=== PATIENT | male | born 1960 | race Caucasian/White ===

== ENCOUNTER 2018-04-11 19:28 | Emergency (ER) | END 2018-04-12 01:25 | disposition short-term general hospital (02) ==

== ENCOUNTER 2018-10-08 15:32 | Inpatient (IN) | payer OTHER ==
[~2018-10-08] VITALS: Ht 165.1 cm; Wt 50.9 kg
[2018-10-08] MEDS ORDERED: DIPHTH/TET/ACEL PERTUSS (ADULT) 0.5 ML VIAL IM* ONE (16:00)
[2018-10-08] MEDS ORDERED: ATOR40TA68 PO (16:20)
[2018-10-08] MEDS ORDERED: GLIM2TAB PO (16:21)
[2018-10-08] MEDS ORDERED: AMLO5TAB4 PO (16:21)
[2018-10-08] MEDS ORDERED: METF100010 PO (16:21)
[2018-10-08] MEDS ORDERED: LISI10TA2 PO (16:22)
--- NOTE | 2018-10-08 17:36 | ERD ---
ER Documentation Chief Complaint Chief Complaint PT BIB RA FOR EVAL OF FALL IN PARKING LOT. SUSTAINED LAC TO CHIN. SYNCOPE HPI The patient is a 58-year-old male, presenting to the ER because he fainted in the parking lot, sustaining a laceration to the chin, did not remember what happened to him. He denies fever, headache, facial pain, neck pain, chest pain, dyspnea, abdominal pain, vomiting, dizzy, diarrhea. He does not smoke nor drink Past medical history: Hypertension, diabetes mellitus ROS All systems reviewed and are negative except as per history of present illness. Medications Home Meds Reported Medications Lisinopril* (Lisinopril*) 10 Mg Tablet, 10 MG PO DAILY, #30 TAB 10/08/18 Metformin Hcl* (Metformin Hcl*) 1,000 Mg Tablet, 1000 MG PO WITH BREAKFAST DINNE, #60 TAB 10/08/18 Glimepiride* (Glimepiride*) 2 Mg Tablet, 2 MG PO WITH BREAKFAST, TAB 10/08/18 Amlodipine Besylate* (Norvasc*) 5 Mg Tablet, 5 MG PO DAILY, TAB 10/08/18 Atorvastatin* (Atorvastatin*) 40 Mg Tablet, 40 MG PO QHS, #30 TAB 10/08/18 Allergies Allergies: Coded Allergies: No Known Allergy (Unverified , 10/08/18) PMhx/Soc Hx Cardiac Disorders: Yes (HTN) Hx Alcohol Use: No Hx Substance Use: No Hx Tobacco Use: No Smoking Status: Never smoker Physical Exam Vitals Vital Signs Date Temp Pulse Resp B/P (MAP) Pulse Ox O2 O2 Flow FiO2 Time Delivery Rate 10/08/18 91 18 136/89 98 Room Air 17:43 (105) 10/08/18 96.9 93 16 179/100 99 15:32 (126) Physical Exam Const: No acute distress. Head: Atraumatic. Eyes: Normal Conjunctiva. ENT: Normal External Ears, Nose and Mouth. Chin laceration 1 cm mild bleeding Neck: Full range of motion. No meningismus. Resp: Clear to auscultation bilaterally. Cardio: Regular rate and rhythm. Abd: Soft, non distended, normal bowel sounds, non tender. Skin: No petechiae or rashes. Back: No midline or flank tenderness. Ext: No cyanosis, or edema. Neur: Awake and alert. No focal deficit Psych: Normal Mood and Affect. Result Diagram: 10/08/18 1552 10/08/18 1552 Results 24 hrs Laboratory Tests Test 10/08/18 15:46 10/08/18 15:48 10/08/18 15:52 10/08/18 17:46 Bedside Glucose 524 mg/dL 475 mg/dL Blood Gas Blood venous Specimen Source Arterial Blood 10/01/2018 4:10:0 Date Drawn 8 PM Arterial Blood VENOUS LINE Gas Puncture Site Chema Test N/A Venous Blood pH 7.407 Venous Blood 49.7 mmHG pCO2 (Temp Corrected) Venous Blood pO2 27.1 mmHG (Temp Corrected) Venous Blood 30.6 mmol/L HCO3 Venous Blood 56.0 mmHG Oxygen Saturation Venous Blood 4.9 mmol/L Base Excess Venous Blood 12.3 g/dl Total Hemoglobin Venous Blood 55.6 % Oxyhemoglobin Venous Blood 0.4 % Methemoglobin Carboxyhemoglobi 0.3 % n Blood Gas 37.0 C Temperature Blood Gas ROOM AIR Modality FiO2 21.0 % Blood Gas Yarbrough Critical Value Read Back Blood Gas Yeimi Rasmussenia Notified Whom Blood Gas 10/08/2018 4:20:0 Notified Time 4 PM White Blood 3.5 10^3/ul Count Red Blood Count 3.27 10^6/ul Hemoglobin 10.6 g/dl Hematocrit 29.6 % Mean Corpuscular 90.5 fl Volume Mean Corpuscular 32.4 pg Hemoglobin Mean Corpuscular 35.8 g/dl Hemoglobin Fide nt Red Cell 13.7 % Distribution Width Platelet Count 113 10^3/UL Mean Platelet 10.1 fl Volume Immature 0.300 % Granulocytes % Neutrophils % 63.0 % Lymphocytes % 28.3 % Monocytes % 7.5 % Eosinophils % 0.6 % Basophils % 0.3 % Nucleated Red 0.0 /100WBC Blood Cells % Immature 0.010 10^3/ul Granulocytes # Neutrophils # 2.2 10^3/ul Lymphocytes # 1.0 10^3/ul Monocytes # 0.3 10^3/ul Eosinophils # 0.0 10^3/ul Basophils # 0.0 10^3/ul Nucleated Red 0.0 10^3/ul Blood Cells # Sodium Level 131 mmol/L Potassium Level 4.0 mmol/L Chloride Level 94 mmol/L Carbon Dioxide 31 mmol/L Level Anion Gap 6 Blood Urea 19 mg/dl Nitrogen Creatinine 0.81 mg/dl Est Glomerular > 60 mL/min Filtrat Rate mL/min Glucose Level 540 mg/dl Calcium Level 8.7 mg/dl Phosphorus Level 3.6 mg/dl Magnesium Level 2.0 mg/dl Troponin I < 0.012 ng/ml Current Medications Medications Dose Sig/Adriel Start Time Status Last (Trade) Ordered Route PRN Stop Time Admin Dose Reason Admin Diphtheria/ 0.5 ml ONCE ONCE 10/08/18 DC 10/08/18 Tetanus/Acell IM* 16:00 16:37 Pertussis 10/08/18 16:01 (Adacel) Insulin 14 unit ONCE ONCE 10/08/18 DC 10/08/18 Human SC 18:00 17:58 Lispro 10/08/18 18:01 (Humalog) Diagnostic 1 ea 2 HRS AFTER 10/08/18 DC Test (Pha) HUMALOG ONCE 18:00 (Accu-Chek) XX 10/08/18 18:01 Sodium 1,000 ml @ Q1H ONCE 10/08/18 10/08/18 Chloride 1,000 mls/hr IV 18:00 17:59 10/08/18 18:59 Procedures/[place] [id number] Radiology Main Line: [phone] DIAGNOSTIC IMAGING REPORT Patient: LARS WATTS : 1960 Age: 58 Sex: M MR #: [id number] DOS: 10/08/18 1546 Ordering MD: RAJNI YARBROUGH MD Location: E/R Room/Bed: PROCEDURE: CT Brain without contrast. CLINICAL INDICATION: Syncope. TECHNIQUE: A CT of the brain without contrast was performed utilizing axial sections from the skull base through the vertex. One or more the following does reduction techniques were utilized: Automated exposure control, adjustment of the mA/ or kV according to patient's size, or use of iterative reconstruction technique. Total exam CTDIvol is 39 MGy and DLP is 634 mGy-cm. DICOM images are available. COMPARISON: None available. FINDINGS: The ventricles and sulci are mildly prominent indicative of volume loss. There is no intracranial hemorrhage, mass effect or midline shift. No abnormal intra- axial or extra-axial fluid collections are seen. The puga/white matter differentiation is well preserved. There are mild scattered foci of hypoattenuation in the periventricular, deep, and subcortical white matter, which are nonspecific in etiology but likely reflect chronic small vessel ischemic changes. There are mild intracranial vascular calcifications consistent with atherosclerosis. The visualized paranasal sinuses are essentially clear. IMPRESSION: 1. No acute intracranial hemorrhage, transcortical infarction or mass effect. 2. Mild intracranial atherosclerosis and chronic small vessel ischemic changes. 3. Mild generalized cerebral volume loss. RPTAT: HH .June Martinez MD, MD Date Time Electronically viewed and signed by .June Martinez MD, MD on 10/08/2018 17:33 .N/ CC: RAJNI YARBROUGH MD [id number] [place] [id number] Radiology Main Line: [phone] DIAGNOSTIC IMAGING REPORT Patient: LARS WATTS : 1960 Age: 58 Sex: M MR #: [id number] DOS: 10/08/18 1546 Ordering MD: RAJNI YARBROUGH MD Location: E/R Room/Bed: PROCEDURE: XR Chest. CLINICAL INDICATION: Shortness of breath. TECHNIQUE: Single frontal view. COMPARISON: 04/11/2018. FINDINGS: The lungs are clear. The heart size is normal. There is calcification in the aorta consistent with atherosclerosis. There is no pleural effusion. There is no pneumothorax. IMPRESSION: 1. Atherosclerosis. 2. Otherwise normal chest x-ray. RPTAT: QQ .Edgar Cline MD, Date Time Electronically viewed and signed by .Edgar Cline MD, on 10/08/2018 16:26 .R/ CC: RAJNI YARBROUGH MD [phone] EKG: Read by emergency physician Rate/Rhythm: Normal Sinus Rhythm 93 beats/min QRS, ST, T-waves: No ST elevation, no T inversion, LAD Impression: Normal EKG MEDICAL MAKING DECISION: The patient is a 58-year-old male, presenting with acute syncope, acute hyperglycemia, acute chin laceration. He was treated with tetanus vaccination, 1 L normal saline and 14 units of Humalog subcutaneously for acute diabetic hyperglycemia with good response. The differential diagnoses acute syncope considered include but are not limited to arrhythmogenic right ventricular dysplasia, Brugada syndrome, left ve ntricular hypertrophy, pulmonary embolism, QT abnormality, [id number], medical noncompliance, dietary noncompliance, HHS, DKA, infection. Laceration Repair by me: Anesthesia: None Location: chin Tendon/Joint/Nerves: No injury Foreign body: None detected after copious irrigation and exploration Technique: Tissue adhesive Complexity: No subcutaneous sutures/mucosal repair/edge excision Post Closure Length: 1cm Patient's bleeding was easily controlled in the department and there is no indication of anemia. No evidence of compartment syndrome, neurologic injury, vascular injury, open joint, tendon laceration, or foreign body. Patient is appropriate for outpatient follow up. 48 hour wound check. Scar minimization instructions given. Departure Diagnosis: Primary Impression: Syncope Additional Impressions: Hyperglycemia Chin laceration Pancytopenia Condition: Good Comments I discussed the findings with the patient. I discussed the patient with Dr Orellana at 5:45 PM, who was made aware of the lab, the treatment, the patient condition. The patient is admitted to [facility] Disclaimer: Inadvertent spelling and grammatical errors are likely due to EHR/dictation software use and do not reflect on the overall quality of patient care. Also, please note that the electronic time recorded on this note does not necessarily reflect the actual time of the patient encounter. RAJNI YARBROUGH MD October 08, 2018 17:36
[2018-10-08] MEDS ORDERED: ACCU-CHEK XX ONE (18:00)
[2018-10-08] MEDS ORDERED: SOD CHLORIDE 0.9% 1,000 ML IV ONE (18:00)
[2018-10-08] MEDS ORDERED: INSULIN LISPRO 100 UNIT/ML VIAL SC ONE (18:00)
[2018-10-08 21:14] VITALS: PULSE 94
[2018-10-08 21:23] VITALS: BP 169/95; PULSE 88; RESP 18
[2018-10-08 21:51] VITALS: Ht 165.1 cm; Wt 50.9 kg
[2018-10-08] MEDS ORDERED: ACETAMINOPHEN 325 MG TAB PO PRN (22:00)
[2018-10-08] MEDS ORDERED: ALBUTEROL/IPRATROPIUM (NEB) 3 ML AMP HHN PRN (22:00)
[2018-10-08] MEDS ORDERED: ONDANSETRON 4 MG INJ IV PRN (22:00)
--- NOTE | 2018-10-08 22:11 | HP ---
Date/Time of Note Date/Time of Note DATE: 10/08/18 TIME: 22:11 Assessment/Plan VTE Prophylaxis Pharmacological prophylaxis: other Lines/Catheters IV Catheter Type (from Nrsg): Saline Lock Assessment/Plan Assessment/Plan 1. Syncope: Possibly from hypoglycemia -Telemetry monitoring -Head CT negative for acute findings -EKG without ST-T wave abnormalities and first troponin negative -Treat hypoglycemia -Serial troponin -2D echo and carotid Doppler ultrasound -PT eval 2. Type 2 diabetes with hyperglycemia: No sign of DKA -Blood glucose better controlled -Continue metformin with ISS -Check A1c 3. Hypertension: Adjust antihypertensive as needed 4. Mild hyponatremia: Likely pseudohyponatremia from hyperglycemia 5. Dyslipidemia: Continue statin Result Diagram: 10/08/18 1552 10/08/18 1552 Results 24hrs Laboratory Tests Test 10/08/18 15:46 10/08/18 15:48 10/08/18 15:52 10/08/18 17:46 Bedside Glucose 524 *H 475 *H Blood Gas Blood venous Specimen Source Arterial Blood 10/01/2018 4:10:0 Date Drawn 8 PM Arterial Blood VENOUS LINE Gas Puncture Site Chema Test N/A Venous Blood pH 7.407 Venous Blood pCO2 49.7 H (Temp Corrected) Venous Blood pO2 27.1 (Temp Corrected) Venous Blood HCO3 30.6 H Venous Blood 56.0 Oxygen Saturation Venous Blood Base 4.9 Excess Venous Blood 12.3 Total Hemoglobin Venous Blood 55.6 Oxyhemoglobin Venous Blood 0.4 Methemoglobin Carboxyhemoglobin 0.3 Blood Gas 37.0 Temperature Blood Gas ROOM AIR Modality FiO2 21.0 Blood Gas Egan Critical Value Read Back Blood Gas ChingOvidio Olivares Notified Whom Blood Gas 10/08/2018 4:20:0 Notified Time 4 PM White Blood Count 3.5 #L Red Blood Count 3.27 L Hemoglobin 10.6 L Hematocrit 29.6 L Mean Corpuscular 90.5 Volume Mean Corpuscular 32.4 Hemoglobin Mean Corpuscular 35.8 Hemoglobin Concen t Red Cell 13.7 Distribution Width Platelet Count 113 L Mean Platelet 10.1 Volume Immature 0.300 Granulocytes % Neutrophils % 63.0 Lymphocytes % 28.3 Monocytes % 7.5 Eosinophils % 0.6 Basophils % 0.3 Nucleated Red 0.0 Blood Cells % Immature 0.010 Granulocytes # Neutrophils # 2.2 Lymphocytes # 1.0 Monocytes # 0.3 Eosinophils # 0.0 Basophils # 0.0 Nucleated Red 0.0 Blood Cells # Sodium Level 131 L Potassium Level 4.0 Chloride Level 94 L Carbon Dioxide 31 Level Anion Gap 6 Blood Urea 19 Nitrogen Creatinine 0.81 Est Glomerular > 60 Filtrat Rate mL/min Glucose Level 540 *H Calcium Level 8.7 Phosphorus Level 3.6 Magnesium Level 2.0 Troponin I < 0.012 Test 10/08/18 20:06 10/08/18 21:36 Bedside Glucose 226 H 98 HPI/ROS Admit Date/Time Admit Date/Time October 08, 2018 at 17:44 Hx of Present Illness This is a 58-year-old male with a history of hypertension, dyslipidemia and type 2 diabetes who presents the ER after he had a syncopal episode. Patient fell in the parking lot. He sustained laceration to his chin. He did complain of dizziness. Denied chest pain. When he presented to the ER, blood pressure was 179/100. Labs shows a blood glucose of 540 and a sodium of 131. EKG without ST-T wave abnormalities, first troponin is negative and head CT without acute findings. PMH/Family/Social Past Medical History Past Medical History Medical History: other (See HPI) Past Surgical History Past Surgical Hx: other (See HPI) Family History Significant Family History: no pertinent family hx Social History Alcohol Use: none Smoking Status: Never smoker Drug Use: none Exam Constitutional: alert, oriented, well developed Head: normocephalic, atraumatic Eyes: EOMI, PERRL Respiratory: clear to auscultation, normal air movement Cardiovascular: regular rate and rhythm, nl pulses Gastrointestinal: soft, non-tender Extremities: normal pulses Medications Current Medications Sodium Chloride 1,000 ml @ 80 mls/hr [id number] IV ; Start 10/08/18 at 21:49; Status UNV Ondansetron HCl (Zofran Inj) 4 mg Q6H PRN IV NAUSEA/VOMITING; Start 10/08/18 at 22:00; Status UNV Acetaminophen (Tylenol Tab) 650 mg Q6H PRN PO .PAIN 1-3 OR TEMP; Start 10/08/18 at 22:00; Status UNV Albuterol/ Ipratropium (Duoneb) 3 ml Q2H RESP THERAPY PRN HHN SHORTNESS OF BREATH; Start 10/08/18 at 22:00; Status UNV Amlodipine Besylate (Norvasc) 5 mg DAILY PO ; Start 10/09/18 at 09:00; Status UNV Atorvastatin Calcium (Lipitor) 40 mg QHS PO ; Start 10/09/18 at 21:00; Status UNV Lisinopril (Zestril) 10 mg DAILY PO ; Start 10/09/18 at 09:00; Status UNV Metformin HCl (Glucophage) 1,000 mg WITH BREAKFAST DINNE PO ; Start 10/09/18 at 08:00; Status UNV Diagnostic Test (Pha) (Accu-Chek) 1 ea AC MEALS AND BEDTIME XX ; Start 10/09/18 at 07:00; Status UNV Miscellaneous Information (* Miscellaneous Pharmacy Order) Discontinue current oral sulfonylur... ONCE ONCE XX ; Start 10/08/18 at 22:00; Stop 10/08/18 at 22:01; Status UNV Diagnostic Test (Pha) (Accu-Chek) 1 ea 02 XX ; Start 10/09/18 at 02:00; Status UNV Miscellaneous Information (* Miscellaneous Pharmacy Order) HYPOGLYCEMIA PROTOCOL w... ONCE ONCE XX ; Start 10/08/18 at 22:00; Stop 10/08/18 at 22:01; Status UNV Insulin Aspart (Novolog Insulin Pen) NOVOLOG *MODERATE* ALGORITHM WITH MEALS BEDTIME SC ; Start 10/09/18 at 08:00; Status UNV Miscellaneous Information (* Miscellaneous Pharmacy Order) Discontinue all previ... ONCE ONCE XX ; Start 10/08/18 at 22:00; Stop 10/08/18 at 22:01; Status UNV Coded Allergies: No Known Allergy (Unverified , 10/08/18) Social History Smoking Status: Never smoker Exam/Review of Systems Vital Signs Vitals Vital Signs Date Temp Pulse Resp B/P (MAP) Pulse Ox O2 O2 Flow FiO2 Time Delivery Rate 10/08/18 98.3 88 18 169/95 94 Room Air 21:23 (119) ELIZABETH AVILA MD October 08, 2018 22:11
[2018-10-08] MEDS ORDERED: GLUCAGON 1 MG INJ IM PRN (22:30)
[2018-10-08] MEDS ORDERED: DEXTROSE 50% 50 ML SYRINGE IV PRN ×2 (22:30)
[2018-10-08] MEDS ORDERED: GLUCOSE GEL 15 GRAM TUBE BUCCAL PRN (22:30)
[2018-10-08] MEDS ORDERED: GLUCOSE GEL 15 GRAM TUBE PO PRN ×2 (22:30)
[2018-10-08] MEDS: SOD CHLORIDE 0.9% 1,000 ML IV SCH (22:52)
[2018-10-09] VITALS (10 sets, daily range): BP systolic 136–166; BP diastolic 75–90; PULSE 71–97; RESP 18–22
[2018-10-09] MEDS: ACCU-CHEK XX SCH ×5 (02:00→21:43)
[2018-10-09] MEDS: metFORMIN 500 MG TAB PO SCH ×2 (08:05→17:14)
[2018-10-09] MEDS: AMLODIPINE 5 MG TAB PO SCH (08:05)
[2018-10-09] MEDS: LISINOPRIL 10 MG TAB PO SCH (08:06)
[2018-10-09] MEDS: INSULIN ASPART [NOVOLOG] 3 ML PEN SC SCH ×4 (08:11→21:42)
[2018-10-09] MEDS: SOD CHLORIDE 0.9% 1,000 ML IV SCH ×2 (10:19→12:55)
[2018-10-09] MEDS ORDERED: LABETALOL HCL 20MG INJ IV PRN (11:30)
--- NOTE | 2018-10-09 15:13 | RADRPT ---
Echocardiogram Report Patient Name: Andra WATTS ID: [id number] : 1960 (58y 6m)Study Date: 10/09/2018 11:04:06 AM Gender: MAccession #: [id number] Tech: Saad Montes [facility] Location: [address] Ref.Physician: CONNOR BUSTILLOS Height(Cm): BSA: Weight(Kg): Quality: AdequateOrder Physician: CONNOR BUSTILLOS Account #: Procedures: Echocardiographic Report: Transthoracic echocardiogram with complete 2D, M-Mode, and doppler examination. Indications: Syncope. Measurements: 2D/M Mode Doppler Measurement Value Normal Range Measurement Value Normal Range LVIDd 2D 4.1 [ 4.2 - 5.8 ] cm AV Peak Alfredito 1.1 [ 100.0 - 170.0 ] cm/sec LVIDs 2D 2.6 [ 2.5 - 4.0 ] cm AV Peak PG 5.0 [ 2.0 - 9.0 ] mmHg LVPWd 2D 1.0 [ 0.6 - 1.0 ] cm LVOT Peak Alfredito 0.9 [ 70.0 - 110.0 ] cm/sec IVSd 2D 1.0 [ 0.6 - 1.0 ] cm LVOT Peak PG 3.0 [ 2.0 - 6.0 ] mmHg AoR Diam 2D 3.1 [ 2.6 - 3.4 ] cm MV E Peak Alfredito 0.8 [ 60.0 - 130.0 ] cm/sec EDV 2D 75.9 [ 62.0 - 150.0 ] ml MV A Peak Alfredito 1.0 [ 100.0 - 120.0 ] cm/sec ESV 2D 24.4 [ 21.0 - 61.0 ] ml MV E/A 0.8 [ 0.8 - 1.5 ] ratio EF 2D 67.9 [ 52.0 - 72.0 ] percent MV Decel Time 155 [ 104 - 258 ] msec LA Dimen 2D 2.6 [ 3.0 - 4.0 ] cm Lat E` Alfredito 0.1 [ 10.0 - 15.0 ] cm/sec Lateral E/E` 10.8 [ 1.0 - 2.0 ] ratio MV E/A 0.8 [ 0.8 - 1.5 ] ratio TR Peak Alfredito 2.8 [ 100.0 - 280.0 ] cm/sec TR Peak PG 31.0 mmHg RVSP 41.0 [ 10.0 - 36.0 ] mmHg Findings: Left Ventricle: Normal left ventricular systolic function. Normal left ventricular cavity size. Normal left ventricular wall thickness. Ejection fraction is visually estimated at 65 %. Tissue Doppler/Mitral Doppler indices are consistent with impaired relaxation (Stage I diastolic dysfunction). Right Ventricle: Normal right ventricular size. Normal right ventricular systolic function. Left Atrium: The left atrium is normal in size. Right Atrium: The right atrium is normal in size. Mitral Valve: Mild mitral leaflet calcification. Mild mitral annular calcification. Trace mitral regurgitation. Aortic Valve: No hemodynamically significant aortic stenosis by doppler. Aortic cusps appear mildly calcified. Tricuspid Valve: Normal appearance of the tricuspid valve. Estimated peak PA systolic pressure 41 mmHg. There is mild tricuspid regurgitation. Pericardium: Normal pericardium with no significant pericardial effusion. Aorta: Normal aortic root. IVC: Normal size and normal respiratory collapse consistent with normal right atrial pressure. Conclusions: Normal left ventricular systolic function. Normal left ventricular cavity size. Normal left ventricular wall thickness. Ejection fraction is visually estimated at 65 %. Tissue Doppler/Mitral Doppler indices are consistent with impaired relaxation (Stage I diastolic dysfunction). Mild mitral leaflet calcification. Mild mitral annular calcification. Trace mitral regurgitation. No hemodynamically significant aortic stenosis by doppler. Aortic cusps appear mildly calcified. Normal appearance of the tricuspid valve. Estimated peak PA systolic pressure 41 mmHg. There is mild tricuspid regurgitation. Electronically Signed By: Manpreet Fernández 2018-10-09 15:12:38 PDT
--- NOTE | 2018-10-09 15:40 | PN ---
Date/Time of Note Date/Time of Note DATE: 10/09/18 TIME: 15:40 Objective Vitals Vital Signs Date Temp Pulse Resp B/P (MAP) Pulse Ox O2 O2 Flow FiO2 Time Delivery Rate 10/09/18 97 12:01 10/09/18 97.8 22 136/75 96 Room Air 11:40 (95) Intake and Output 10/08/18 10/08/18 10/09/18 1515:00 23:00 07:00 IntakeIntake Total 500 ml OutputOutput Total 800 ml BalanceBalance -300 ml Results Result Diagram: 10/09/18 0416 10/09/18 0416 Medications Medications Current Medications Sodium Chloride 1,000 ml @ 80 mls/hr [id number] IV Last administered on 10/09/18at 12:55; Admin Dose 80 MLS/HR; Start 10/08/18 at 21:49 Ondansetron HCl (Zofran Inj) 4 mg Q6H PRN IV NAUSEA/VOMITING; Start 10/08/18 at 22:00 Acetaminophen (Tylenol Tab) 650 mg Q6H PRN PO .PAIN 1-3 OR TEMP; Start 10/08/18 at 22:00 Albuterol/ Ipratropium (Duoneb) 3 ml Q2H RESP THERAPY PRN HHN SHORTNESS OF BREATH; Start 10/08/18 at 22:00 Amlodipine Besylate (Norvasc) 5 mg DAILY PO Last administered on 10/09/18at 08:05; Admin Dose 5 MG; Start 10/09/18 at 09:00 Atorvastatin Calcium (Lipitor) 40 mg QHS PO ; Start 10/09/18 at 21:00 Lisinopril (Zestril) 10 mg DAILY PO Last administered on 10/09/18at 08:06; Admin Dose 10 MG; Start 10/09/18 at 09:00 Metformin HCl (Glucophage) 1,000 mg WITH BREAKFAST DINNE PO Last administered on 10/09/18at 08:05; Admin Dose 1,000 MG; Start 10/09/18 at 08:00 Diagnostic Test (Pha) (Accu-Chek) 1 ea AC MEALS AND BEDTIME XX Last administered on 10/09/18at 11:42; Admin Dose 1 EA; Start 10/09/18 at 07:00 Diagnostic Test (Pha) (Accu-Chek) 1 ea 02 XX Last administered on 10/09/18at 02:00; Admin Dose 1 EA; Start 10/09/18 at 02:00 Insulin Aspart (Novolog Insulin Pen) NOVOLOG *MODERATE* ALGORITHM WITH MEALS BEDTIME SC Last administered on 10/09/18at 11:45; Admin Dose 6 UNIT; Start 10/09/18 at 08:00 Miscellaneous Information 1 ea NOTE XX ; Start 10/08/18 at 22:30 Glucose (Glutose) 15 gm Q15M PRN PO DECREASED GLUCOSE; Start 10/08/18 at 22:30 Glucose (Glutose) 22.5 gm Q15M PRN PO DECREASED GLUCOSE; Start 10/08/18 at 22:30 Dextrose (D50w Syringe) 25 ml Q15M PRN IV DECREASED GLUCOSE; Start 10/08/18 at 22:30 Dextrose (D50w Syringe) 50 ml Q15M PRN IV DECREASED GLUCOSE; Start 10/08/18 at 22:30 Glucagon (Glucagen) 1 mg Q15M PRN IM DECREASED GLUCOSE; Start 10/08/18 at 22:30 Glucose (Glutose) 15 gm Q15M PRN BUCCAL DECREASED GLUCOSE; Start 10/08/18 at 22:30 Insulin Glargine (Lantus) 10 units DAILY@2000 SC ; Start 10/09/18 at 20:00 Labetalol HCl (Labetalol) 10 mg Q4H PRN IV sbp >160; Start 10/09/18 at 11:30 VTE Prophylaxis Risk score (from Ns)>0 risk: 2 SCD applied (from Ns): Yes Lines/Catheters IV Catheter Type: Gilliam in Place: No Assessment/Plan Hospital Course Subjective Patient feeling well, no acute complaints Objective Physical exam General: Patient is laying in bed and answers questions appropriately Mentation: Patient is alert and oriented 4, Head: Normocephalic atraumatic Eyes: EOMI, pupils reactive to light Neck: Supple, nontender, midline Respiratory: Clear to auscultation bilaterally Cardiovascular: regular rate, no obvious murmurs Gastrointestinal: non-tender to palpation, bowel sounds heard. Neurological: Moves all extremities spontaneously Skin: Skin sedrick present on left hip Assessment and plan Syncope -Possibly due to effects of hyperglycemia -Completely resolved -No chest pain or other symptoms currently, no dizziness -Echo noted -Doppler noted -CT head negative -Unable to perform MRI as patient had hip surgery, patient states the only put plastic inside him however patient is a very poor historian and very likely unreliable as he does not even remember the hospital that he got the surgery done. Type 2 diabetes with hyperglycemia -Not in DKA -We will need to adjust insulin other medications as needed -A1c is very elevated Left hip sedrick -Present since March 2018 as patient did not follow-up with his orthopedic surgeon, -Remove today Hypertension -Adjust as needed Hyponatremia -Monitor closely, mild, improving Dyslipidemia -Continue statin Disposition -Patient appears to have very poor insight into his medical care as he left sedrick in for approximately 6 months, patient did follow-up with his primary care provider but did not inquire further once the sedrick were not removed, remove sedrick today -Continue adjusting diabetic medications before discharge. CONNOR BUSTILLOS October 09, 2018 15:40
[2018-10-09] MEDS: LINAGLIPTIN 5 MG TABLET PO SCH (17:14)
[2018-10-09] MEDS: REPAGLINIDE 1 MG TAB PO SCH (17:14)
[2018-10-09] MEDS ORDERED: INSULIN GLARGINE [LANTus] (100 UNITS/ML) SYG SC SCH (20:00)
[2018-10-09] MEDS: ATORVASTATIN 40 MG TAB PO SCH (20:42)
[2018-10-10] VITALS (10 sets, daily range): BP systolic 107–160; BP diastolic 62–86; PULSE 75–90; RESP 18–22
[2018-10-10] MEDS: ACCU-CHEK XX SCH ×5 (02:01→20:32)
[2018-10-10] MEDS: SOD CHLORIDE 0.9% 1,000 ML IV SCH (04:55)
[2018-10-10] MEDS: INSULIN ASPART [NOVOLOG] 3 ML PEN SC SCH ×4 (07:47→20:31)
[2018-10-10] MEDS: metFORMIN 500 MG TAB PO SCH ×2 (08:17→17:09)
[2018-10-10] MEDS: LISINOPRIL 10 MG TAB PO SCH (08:17)
[2018-10-10] MEDS: AMLODIPINE 5 MG TAB PO SCH (08:18)
[2018-10-10] MEDS: REPAGLINIDE 1 MG TAB PO SCH ×3 (08:18→17:09)
[2018-10-10] MEDS: LINAGLIPTIN 5 MG TABLET PO SCH (08:18)
--- NOTE | 2018-10-10 14:30 | PN ---
Date/Time of Note Date/Time of Note DATE: 10/10/18 TIME: 14:28 Objective Vitals Vital Signs Date Temp Pulse Resp B/P (MAP) Pulse Ox O2 O2 Flow FiO2 Time Delivery Rate 10/10/18 79 12:00 10/10/18 98.2 22 107/62 96 Room Air 11:34 (77) Intake and Output 10/09/18 10/09/18 10/10/18 1515:00 23:00 07:00 IntakeIntake Total 1000 ml 980 ml 400 ml BalanceBalance 1000 ml 980 ml 400 ml Results Result Diagram: 10/10/18 0544 10/10/18 0544 Medications Medications Current Medications Ondansetron HCl (Zofran Inj) 4 mg Q6H PRN IV NAUSEA/VOMITING; Start 10/08/18 at 22:00 Acetaminophen (Tylenol Tab) 650 mg Q6H PRN PO .PAIN 1-3 OR TEMP; Start 10/08/18 at 22:00 Albuterol/ Ipratropium (Duoneb) 3 ml Q2H RESP THERAPY PRN HHN SHORTNESS OF BREATH; Start 10/08/18 at 22:00 Amlodipine Besylate (Norvasc) 5 mg DAILY PO Last administered on 10/10/18at 08:18; Admin Dose 5 MG; Start 10/09/18 at 09:00 Atorvastatin Calcium (Lipitor) 40 mg QHS PO Last administered on 10/09/18at 20:42; Admin Dose 40 MG; Start 10/09/18 at 21:00 Lisinopril (Zestril) 10 mg DAILY PO Last administered on 10/10/18at 08:17; Admin Dose 10 MG; Start 10/09/18 at 09:00 Metformin HCl (Glucophage) 1,000 mg WITH BREAKFAST DINNE PO Last administered on 10/10/18 08:17; Admin Dose 1,000 MG; Start 10/09/18 at 08:00 Diagnostic Test (Pha) (Accu-Chek) 1 ea AC MEALS AND BEDTIME XX Last administered on 10/10/18at 11:23; Admin Dose 1 EA; Start 10/09/18 at 07:00 Diagnostic Test (Pha) (Accu-Chek) 1 ea 02 XX Last administered on 10/10/18at 02:01; Admin Dose 1 EA; Start 10/09/18 at 02:00 Insulin Aspart (Novolog Insulin Pen) NOVOLOG *MODERATE* ALGORITHM WITH MEALS BEDTIME SC Last administered on 10/10/18at 11:30; Admin Dose 6 UNIT; Start 10/09/18 at 08:00 Miscellaneous Information 1 ea NOTE XX ; Start 10/08/18 at 22:30 Glucose (Glutose) 15 gm Q15M PRN PO DECREASED GLUCOSE; Start 10/08/18 at 22:30 Glucose (Glutose) 22.5 gm Q15M PRN PO DECREASED GLUCOSE; Start 10/08/18 at 22:30 Dextrose (D50w Syringe) 25 ml Q15M PRN IV DECREASED GLUCOSE; Start 10/08/18 at 22:30 Dextrose (D50w Syringe) 50 ml Q15M PRN IV DECREASED GLUCOSE; Start 10/08/18 at 22:30 Glucagon (Glucagen) 1 mg Q15M PRN IM DECREASED GLUCOSE; Start 10/08/18 at 22:30 Glucose (Glutose) 15 gm Q15M PRN BUCCAL DECREASED GLUCOSE; Start 10/08/18 at 22:30 Labetalol HCl (Labetalol) 10 mg Q4H PRN IV sbp >160; Start 10/09/18 at 11:30 Repaglinide (Prandin) 1 mg WITH MEALS PO Last administered on 10/10/18at 11:27; Admin Dose 1 MG; Start 10/09/18 at 18:00; Stop 10/10/18 at 22:00 Linagliptin (Tradjenta) 5 mg DAILY PO Last administered on 10/10/18at 08:18; Admin Dose 5 MG; Start 10/09/18 at 16:00 Glipizide (Glucotrol) 2.5 mg AC BREAKFAST PO ; Start 10/11/18 at 07:00 VTE Prophylaxis Risk score (from Nsg)>0 risk: 2 SCD applied (from Nsg): Yes Lines/Catheters IV Catheter Type: Gilliam in Place: No Assessment/Plan Hospital Course Subjective Patient feeling well, no acute complaints Objective Physical exam General: Patient is laying in bed and answers questions appropriately Mentation: Patient is alert and oriented 4, Head: Normocephalic atraumatic Eyes: EOMI, pupils reactive to light Neck: Supple, nontender, midline Respiratory: Clear to auscultation bilaterally Cardiovascular: regular rate, no obvious murmurs Gastrointestinal: non-tender to palpation, bowel sounds heard. Neurological: Moves all extremities spontaneously Skin: Skin sedrick present on left hip Assessment and plan Syncope -Possibly due to effects of hyperglycemia -Completely resolved -No chest pain or other symptoms currently, no dizziness -Echo noted -Doppler noted -CT head negative -Unable to perform MRI as patient had hip surgery, patient states the only put plastic inside him however patient is a very poor historian and very likely unreliable as he does not even remember the hospital that he got the surgery done. Type 2 diabetes with hyperglycemia -Not in DKA -We will need to adjust insulin other medications as needed -A1c is very elevated -Patient states he takes his medications on a normal basis however when inquiring the exact name and how often he does not even know the name of his medications and states he takes both of them twice a day which is incorrect. At this point I feel patient does have poor insight to his medical care although he does seem to be alert and oriented otherwise. It leads me to believe patient was not appropriately taking his diabetic medications as I have this restarted his occasions and his blood sugars have been well under control. If it is stable, plan for DC tomorrow Left hip sedrick -Present since March 2018 as patient did not follow-up with his orthopedic surgeon, -Removed, no issues Hypertension -Adjust as needed Hyponatremia -Monitor closely, mild, improving Dyslipidemia -Continue statin Disposition -Patient has very poor insight into his diabetic medication regimen, if stable, plan for discharge tomorrow with appropriate regimen. CONNOR BUSTILLOS October 10, 2018 14:30
[2018-10-10] MEDS: ATORVASTATIN 40 MG TAB PO SCH (20:28)
[2018-10-11] VITALS: BP 130/70; PULSE 85; RESP 18
[2018-10-11] MEDS: ACCU-CHEK XX SCH ×3 (02:00→11:50)
[2018-10-11 03:55] VITALS: BP 127/72; PULSE 80; RESP 18
[2018-10-11] MEDS ORDERED: glipiZIDE 5 MG TAB PO SCH (07:00)
[2018-10-11 07:22] VITALS: BP 107/55; PULSE 92; RESP 18
[2018-10-11] MEDS: LISINOPRIL 10 MG TAB PO SCH (08:05)
[2018-10-11] MEDS: metFORMIN 500 MG TAB PO SCH (08:05)
[2018-10-11] MEDS: AMLODIPINE 5 MG TAB PO SCH (08:05)
[2018-10-11] MEDS: LINAGLIPTIN 5 MG TABLET PO SCH (08:05)
[2018-10-11] MEDS: INSULIN ASPART [NOVOLOG] 3 ML PEN SC SCH ×2 (08:08→11:52)
[2018-10-11] MEDS ORDERED: MAGNESIUM SULFATE 2 GM/50 ML 50 ML IVPB ONE (09:30)
[2018-10-11] MEDS ORDERED: LISI10TA2 PO (11:08)
[2018-10-11] MEDS ORDERED: AMLO-145 PO (11:08)
[2018-10-11] MEDS ORDERED: SITA100T11 PO (11:08)
[2018-10-11] MEDS ORDERED: GLIP5TAB13 PO (11:08)
[2018-10-11] MEDS ORDERED: METF100010 PO (11:08)
[2018-10-11] MEDS ORDERED: ATOR40TA68 PO (11:08)
--- NOTE | 2018-10-11 11:14 | DS ---
Date/Time of Note Date/Time of Note DATE: 10/11/18 TIME: 11:14 Discharge Summary Admission/Discharge Info Admit Date/Time October 09, 2018 at 11:21 Discharge Date/Time Patient Condition: Stable Hospital Course Patient is a male with a past medical history significant for diabetes mellitus, orthopedic surgery, hypertension, this lipidemia who presents to [facility] for a syncopal episode. Patient's syncopal episode was highly likely due to patient's uncontrolled diabetes with hyperglycemia. During this time patient exhibited a personality were of medical noncompliance was an issue. Patient had an unknown orthopedic hip surgery however left hip sedrick in for approximately 7 to 8 months. Patient also states he takes all his medications and sees a doctor on a normal basis every other week however he does not know the exact names of his diabetic medications. It is my belief that although patient is completely oriented he does have an issue with medical compliance and it was thoroughly explained to him in [place] the importance of taking all his medications. To make it easier for the patient I told him that I would write him new prescriptions for everything and to make sure he takes his diabetic medication regimen as his blood sugars were easily controlled with very mild medications here in the hospital. Patient syncope was likely due to hyperg lycemia, MRI was unable to be performed as patient does not know exactly the type of hip surgery he had which may contain metal. Patient did not have any other issues with syncope or dizziness however did exhibit some very mild unsteadiness when ambulating on his own and thus will be offered a front wheel walker on discharge. Patient declined physical therapy evaluation. Patient is to follow-up with his primary care provider as soon as possible and to continue taking his medications. Patient understands. Discharge diagnoses Syncope, resolved Hyperglycemia, resolved Type 2 diabetes mellitus History of left hip surgery, sedrick removed Hypertension Electrolyte derangement, resolved Dyslipidemia Home Meds Active Scripts Sitagliptin* (Januvia*) 100 Mg Tablet, 100 MG PO DAILY, #30 TAB 2 Refills Prov:CONNOR BUSTILLOS 10/11/18 Glipizide* (Glipizide*) 5 Mg Tablet, 2.5 MG PO AC BREAKFAST for 30 Days, #15 TAB 2 Refills Prov:CONNOR BUSTILLOS 10/11/18 Lisinopril* (Lisinopril*) 10 Mg Tablet, 10 MG PO DAILY for 30 Days, #30 TAB 2 Refills Prov:CONNOR BUSTILLOS 10/11/18 Amlodipine Besylate* (Amlodipine Besylate*) 5 Mg Tablet, 5 MG PO DAILY for 30 Days, #30 TAB 2 Refills Prov:CONNOR BUSTILLOS 10/11/18 Metformin Hcl* (Metformin Hcl*) 1,000 Mg Tablet, 1000 MG PO WITH BREAKFAST DINNE for 30 Days, #60 TAB 2 Refills Prov:CONNOR BUSTILLOS 10/11/18 Atorvastatin* (Atorvastatin*) 40 Mg Tablet, 40 MG PO QHS for 30 Days, #30 TAB 2 Refills Prov:CONNOR BUSTILLOS 10/11/18 Reported Medications Lisinopril* (Lisinopril*) 10 Mg Tablet, 10 MG PO DAILY, #30 TAB 10/08/18 Glimepiride* (Glimepiride*) 2 Mg Tablet, 2 MG PO WITH BREAKFAST, TAB 10/08/18 Amlodipine Besylate* (Norvasc*) 5 Mg Tablet, 5 MG PO DAILY, TAB 10/08/18 Primary Care Provider [facility] Time spent on discharge: > 30 minutes Pending Labs Laboratory Tests Test 10/10/18 11:22 10/10/18 17:08 10/10/18 20:27 10/11/18 05:23 Bedside 234 112 118 Glucose mg/dL (70-220) mg/dL (70-220) mg/dL (70-220) White Blood 3.9 Count 10^3/ul (4.8-1 0.8) Red Blood 3.16 Count 10^6/ul (4.70- 6.10) Hemoglobin 10.4 g/dl (14.0-18. 0) Hematocrit 28.4 % (42.0-52.0) Mean 89.9 Corpuscular fl (82.0-101.0 Volume ) Mean 32.9 Corpuscular pg (29.0-33.0) Hemoglobin Mean 36.6 Corpuscular g/dl (32.0-37. Hemoglobin Conc 0) ent Red Cell 13.4 Distribution % (11.5-14.5) Width Platelet Count 136 10^3/UL (140-4 15) Mean Platelet 9.2 Volume fl (7.4-10.4) Immature 0.500 Granulocytes % % (0.001-0.429 ) Neutrophils % 60.8 % (39.0-77.0) Lymphocytes % 25.0 % (15.0-51.0) Monocytes % 11.7 % (0.0-11.0) Eosinophils % 1.5 % (0.0-7.0) Basophils % 0.5 % (0.0-2.0) Nucleated Red 0.0 Blood Cells % /100WBC (0.0-0 .0) Immature 0.020 Granulocytes # 10^3/ul (0.0-0 .031) Neutrophils # 2.4 10^3/ul (1.6-7 .5) Lymphocytes # 1.0 10^3/ul (0.8-2 .9) Monocytes # 0.5 10^3/ul (0.3-0 .9) Eosinophils # 0.1 10^3/ul (0.0-0 .5) Basophils # 0.0 10^3/ul (0.0-0 .1) Nucleated Red 0.0 Blood Cells # 10^3/ul (0.0-0 .0) Sodium Level 136 mmol/L (135-14 4) Potassium 3.6 Level mmol/L (3.5-5. 1) Chloride Level 104 mmol/L (97-110 ) Carbon Dioxide 29 Level mmol/L (21-31) Anion Gap 3 (5-13) Blood Urea 24 Nitrogen mg/dl (7-20) Creatinine 0.74 mg/dl (0.61-1. 24) Est Glomerular > 60 Filtrat mL/min (>60) Rate mL/min Glucose Level 142 mg/dl (70-220) Calcium Level 8.5 mg/dl (8.4-10. 2) Phosphorus 3.8 Level mg/dl (2.5-4.9 ) Magnesium 1.6 Level mg/dl (1.7-2.5 ) Total 0.4 Bilirubin mg/dl (0.2-1.3 ) Direct 0.00 Bilirubin mg/dl (0.00-0. 20) Indirect 0.4 Bilirubin mg/dl (0-1.1) Aspartate Amino 43 Transf (AST/SGO IU/L (15-46) T) Alanine 102 Aminotransferas IU/L (13-69) e (ALT/SGPT) Alkaline 179 Phosphatase IU/L (42-121) Total Protein 5.5 g/dl (6.1-8.1) Albumin 2.7 g/dl (3.3-4.9) Test 10/11/18 06:32 10/11/18 08:04 Bedside 170 178 Glucose mg/dL (70-220) mg/dL (70-220) CONNOR BUSTILLOS October 11, 2018 11:14
--- NOTE | 2018-10-11 11:15 | PDOCDIS ---
Discharge Instructions CONDITION [id number] Patient Condition: [id number] Stable FOLLOW UP/APPOINTMENTS Follow-up Plan 1. Please follow-up with your primary care provider as soon as possible 2. Please note new changes to your medications, please discard all medications and take only new medications that were prescribed CONNOR BUSTILLOS October 11, 2018 11:15
[2018-10-11 11:39] VITALS: BP 106/66; PULSE 78; RESP 18
[2018-10-11 15:35] VITALS: BP 108/69; PULSE 81; RESP 15
== END 2018-10-11 15:06 | disposition home health service (06) | DRG 638 ==
LOC: E/R 15:32 → 6WM 17:44 → OBSVTOIN 10-09 11:21
PROVIDERS: ADMIT Internal Medicine; ATTEND Internal Medicine
DX: E11.65 Type 2 diabetes mellitus with hyperglycemia (principal); E87.1 Hypo-osmolality and hyponatremia; L97.419 Non-pressure chronic ulcer of right heel and midfoot with unspecified severity; Z68.1 Body mass index [BMI] 19.9 or less, adult; D61.818 Other pancytopenia; E11.621 Type 2 diabetes mellitus with foot ulcer; E11.8 Type 2 diabetes mellitus with unspecified complications; R55 Syncope and collapse; E78.5 Hyperlipidemia, unspecified; I10 Essential (primary) hypertension; D64.9 Anemia, unspecified; R63.6 Underweight; S01.81XA Laceration without foreign body of other part of head, initial encounter; W19.XXXA Unspecified fall, initial encounter; Y92.481 Parking lot as the place of occurrence of the external cause
CPT/HCPCS: 36415; 70450; 71045; 76705; 80048; 80053; 80061; 80076; 82550; 82553; 82803; 82962; 83036; 83735; 84100; 84443; 84484; 85025; 90471; 90715; 93005; 93306; 93880; G0378; J1815; J3475; J7030